=== PATIENT | female | born 1960 | race Caucasian/White ===

== ENCOUNTER → 2016-09-05 10:23 | Outpatient (CLI) | payer OTHER | END | disposition home or self-care (01) | LOC: D.US 10:23 | DX: R22.1 Localized swelling, mass and lump, neck (principal) ==

== ENCOUNTER → 2017-04-27 07:32 | Outpatient (CLI) | payer OTHER | END | disposition home or self-care (01) | LOC: D.CT 04-12 13:54 | DX: R10.9 Unspecified abdominal pain (principal) ==